=== PATIENT | female | born 1965 | race Caucasian/White ===

== ENCOUNTER 2020-06-12 12:13 | Outpatient (REF) | payer MEDICAID, SELFPAY ==
[2020-06-12 19:41] LABS: HCT 44.6 % (36.0-46.0); HGB 14.5 g/dL (11.2-15.7); MCH 29.6 pg (27.0-33.0); MCHC 32.5 % (32.0-36.0); MPV 11.1 fL (8.0-11.0); Platelet Count 230 10^3/uL (130-400); RDW 12.4 % (11.7-14.6); RDW-SD 41.4 fL; WBC 11.11 10^3/uL (4.4-10.8)
[2020-06-12 20:04] LABS: BUN 14 mg/dL (7-18); CREATININE 0.87 mg/dL (0.55-1.02); Calcium 8.6 mg/dL (8.5-10.1); Calculated LDL 123 mg/dL (<100); Chloride 103 mmol/L (98-107); Cholesterol 207 mg/dL (<200); Glucose 110 mg/dL (74-106); HDL Cholesterol 49 mg/dL (40-60); Potassium 4.1 mmol/L (3.5-5.1); Sodium 136 mmol/L (136-145); TSH (W/Ref FT4) 2.03 uIU/mL (0.36-3.74); Triglyceride 177 mg/dL (<150)
== END 2020-06-12 12:33 ==
LOC: NCHCN 12:13
PROVIDERS: Visit Provider Nurse Practitioner Family
DX: I10 Essential (primary) hypertension (principal); E11.9 Type 2 diabetes mellitus without complications; Z00.00 Encounter for general adult medical examination without abnormal findings
CPT/HCPCS: 80048; 80061; 85027; 84443

== ENCOUNTER 2020-07-07 13:31 | Outpatient (REF) | payer MEDICAID, SELFPAY ==
[2020-07-09 17:33] LABS: SARS-CoV-2 RNA Undetected (Undetected); SARS-CoV-2 Specimen Source Nasal
== END 2020-07-07 13:51 ==
LOC: NCHCN 13:31
PROVIDERS: Visit Provider Nurse Practitioner Family
DX: J06.9 Acute upper respiratory infection, unspecified (principal)
CPT/HCPCS: U0003

== ENCOUNTER 2020-09-11 01:34 | Outpatient (CLI) | payer MEDICAID, SELFPAY ==
[2020-09-12 11:30] LABS: COVID-19 RT-PCR UVMMC Result Negative (Negative)
== END 2020-09-11 01:35 | disposition home or self-care (01) ==
LOC: LBO 01:36
PROVIDERS: Visit Provider Family Medicine
DX: Z20.822 Contact with and (suspected) exposure to COVID-19 (principal)
CPT/HCPCS: U0003

== ENCOUNTER 2020-09-14 03:39 | Outpatient (CLI) | payer MEDICAID, SELFPAY ==
[2020-09-14] MEDS: Inhaler, Assist Device 1 EACH MC (11:30)
[2020-09-14] MEDS: Albuterol HFA 18 GM 200 PUFF INH IH (11:30)
--- NOTE | 2020-09-16 14:53 | W.PFT ---
Date of service: 09/14/20 Time of Service: 10:19 Pulmonary Function Test Result Interpretation Spirometry: No evidence of obstructive airways disease, no bronchodilator response Lung Volumes: Mild restriction Diffusion Capacity: Normal Airway Pressure: Normal Impression Mild restrictive pattern, clinical correlation recommended Clinical Correlation therefore is recommended.
== END 2020-09-14 03:40 | disposition home or self-care (01) ==
LOC: RT 03:39
PROVIDERS: Visit Provider Nurse Practitioner Family
DX: R06.09 Other forms of dyspnea (principal); Z82.5 Family history of asthma and other chronic lower respiratory diseases
CPT/HCPCS: 94060; 94726; 94729

== ENCOUNTER 2020-09-23 02:05 | Outpatient (CLI) | payer MEDICAID, SELFPAY ==
--- NOTE | 2020-09-23 14:58 | DI.MAMMO_ITS ---
EXAM: MG MAMMO SCREENING CLINICAL HISTORY: SCREENING, Z12.39. TECHNIQUE: Bilateral full field digital CC and MLO mammographic images were obtained with 3D tomosyn thesis and utilizing computer aided detection (CAD). COMPARISON: None. Prior mammograms in [place]. Addendum will follow if these are received. FINDINGS: The fibroglandular tissue pattern is predominantly fatty. There are no significant focal findings in the right breast. In the left breast on 3D imaging there is a benign appearing noncalcified well-defined 2 millimeter nodule located 10 cm in from the nipple. Approximately 6 o'clock position. Benign-appearing microcalcifications are noted in both breast. No malignant-appearing microcalcification groups. There is no significant architectural distortion n or skin thickening-retraction. IMPRESSION: No radiographic evidence of malignancy in the right breast. Small benign-appearing noncalcified well-defined 2 millimeter left breast nodule as described above. The next step should be to acquire the prior images-mammograms from [place] for comparison purposes. Attempt will be made to obtain these prior mammograms. If you have not received an addendum report with comparison in 2 weeks time then please contact our radiology department at . BI-RADS Category 0 - Assessment Incomplete: Need additional imaging evaluation Breast Density - Category A - Almost entirely fatty Breast density Category C or D implies that the patient has dense breast tissue. Dense breast tissue can make it harder to find cancer on a mammogram. Dense breast tissue is also associated with an incr eased risk of breast cancer. This information about the result of the mammogram report was provided to the patient to raise their awareness. Use this report when you speak with the patient about their risks for breast cancer, which includes their family history. At that time, you may recommend additional screening tests (Ultrasoun d or MRI) as these tests may add significant information. A negative radiographic report should not delay biopsy if a dominant or clinically suspicious mass is present. Up to ten percent of cancers are not identified on mammography. A negative report may reinforce clinical impression. Adenosis and dense breasts may obscure an underlying neoplasm. False positive reports average 6 to 10%. Patient will receive a letter notifying them of these results.
== END 2020-09-23 02:06 ==
LOC: DI 02:05
PROVIDERS: Visit Provider Nurse Practitioner Family
DX: Z12.31 Encounter for screening mammogram for malignant neoplasm of breast (principal); R92.8 Other abnormal and inconclusive findings on diagnostic imaging of breast
CPT/HCPCS: 77063; 77067

== ENCOUNTER 2020-10-09 11:17 | Outpatient (CLI) | payer MEDICAID, SELFPAY ==
--- NOTE | 2020-10-09 10:12 | DI.RAD_ITS ---
EXAM: XR KNEE RT 3V AP,LAT,STEVEN CLINICAL HISTORY: RT KNEE PAIN, M25.561. TECHNIQUE: 2D digital imaging was performed. COMPARISON: No exams were available for comparison FINDINGS: BONES: No acute fracture is present. No bony destructive lesion is seen. There are enthesophytes site s at the superior and inferior patella and anterior tibia. JOINTS: The knee is normally aligned. No joint effusion is seen. The joint spaces are well maintained . SOFT TISSUE: Normal. IMPRESSION: No acute abnormality. DATA REPOSITORY: RADIATION DOSE DELIVERED:
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
== END 2020-10-09 11:37 ==
PROVIDERS: PCP Nurse Practitioner Family; Visit Provider Nurse Practitioner Family
DX: M25.561 Pain in right knee (principal)
CPT/HCPCS: 73562

== ENCOUNTER 2020-10-15 01:52 | Outpatient (CLI) | payer MEDICAID, SELFPAY ==
--- NOTE | 2020-10-15 | DI.US_ITS ---
EXAM: MG MAMMO SCREEN CALL BACK UNI and U/S breast LT limited CLINICAL HISTORY: F/U MAMMO, LT BREAST NODULE. TECHNIQUE: Craniocaudal and mediolateral oblique Full Field Digital Mammography views of the left br east with Computer Aided Diagnosis followed by Tomosynthesis and left breast ultrasound. COMPARISON: Prior examinations for comparison. FINDINGS: Mammography/Tomosynthesis: Masses/Architectural Distortion: None seen. The nodular density previously noted is not well visualiz ed on the additional views. Unremarkable vessels are seen in the central breast. Microcalcifictions: No suspicious pleomorphic-type are seen. Skin Thickening/Nipple Retraction: None. Left breast US: Echotexture: Normal appearance of the glandular tissue. Shadowing: No suspicious foci. Cyst: None. Solid lesions: None seen. Ductal dilation: None. IMPRESSION: 1. No evidence of malignancy is noted. 2. Six-month follow-up left mammogram is recommended for re-evaluation. 3. The findings were discussed with the patient on the date of the examination. BI-RADS Category 3 - 6 month - Probably Benign Finding: Recommend follow-up mammography in 6 months Breast Density - Category A - Almost entirely fatty Breast density Category C or D implies that the patient has dense breast tissue. Dense breast tissue can make it harder to find cancer on a mammogram. Dense breast tissue is also associated with an incr eased risk of breast cancer. This information about the result of the mammogram report was provided to the patient to raise their awareness. Use this report when you speak with the patient about their risks for breast cancer, which includes their family history. At that time, you may recommend additional screening tests (Ultrasoun d or MRI) as these tests may add significant information. A negative radiographic report should not delay biopsy if a dominant or clinically suspicious mass is present. Up to ten percent of cancers are not identified on mammography. A negative report may reinforce clinical impression. Adenosis and dense breasts may obscure an underlying neoplasm. False positive reports average 6 to 10%. Patient will receive a letter notifying them of these results.
== END 2020-10-15 02:12 ==
PROVIDERS: Visit Provider Nurse Practitioner Family
DX: R92.8 Other abnormal and inconclusive findings on diagnostic imaging of breast (principal)
CPT/HCPCS: 76642; 77063; 77067

== ENCOUNTER 2020-12-30 03:05 | Outpatient (CLI) | payer MEDICAID, SELFPAY ==
[2020-12-30 11:39] LABS: Source Nasal/Nares
[2020-12-30 16:05] LABS: COVID-19 PCR Negative (Negative)
== END 2020-12-30 03:06 | disposition home or self-care (01) ==
PROVIDERS: Visit Provider Nurse Practitioner
DX: Z20.822 Contact with and (suspected) exposure to COVID-19 (principal); Z01.818 Encounter for other preprocedural examination
CPT/HCPCS: 87635

== ENCOUNTER 2021-04-20 02:12 | Outpatient (CLI) | payer MEDICAID, SELFPAY ==
--- NOTE | 2021-04-20 08:55 | DI.MAMMO_ITS ---
Exam(s) MG MAMMO DIAGNOSTIC UNI EXAM: MG MAMMO DIAGNOSTIC UNI CLINICAL HISTORY: [id number] 6 MO F/U, F/U ABNL MAMMO,R92.8. TECHNIQUE: Craniocaudal and mediolateral oblique Full Field Digital Mammography views of the left b reast with Computer Aided Diagnosis followed by Tomosynthesis. COMPARISON: MG MG MAMMO SCREENING from 09/23/2020 MG MG MAMMO SCREENING from 09/23/2020 US US BREAST LT LIMITED from 10/15/2020 US US BREAST LT LIMITED from 10/15/2020 MG MG MAMMO SCREEN CALL BACK UNI from 10/15/2020 MG MG MAMMO SCREEN CALL BACK UNI from 10/15/2020 FINDINGS: Mammography/Tomosynthesis: Masses/Architectural Distortion: None seen. Microcalcifictions: No suspicious pleomorphic-type are seen. Skin Thickening/Nipple Retraction: None. IMPRESSION: 1. No evidence of malignancy is noted. 2. Unless there is more urgent need, follow-up screening mammography is recommended, as per [employer] guidelines. 3. The findings were discussed with the patient on the date of the examination. BI-RADS Category 1 - Negative Breast Density - Category A - Almost entirely fatty A negative radiographic report should not delay biopsy if a dominant or clinically suspicious mass is present. Up to ten percent of cancers are not identified on mammography. A negative report may reinforce clinical impression. Adenosis and dense breasts may obscure an underlying neoplasm. False positive reports average 6 to 10%. Patient will receive a letter notifying them of these results.
== END 2021-04-20 02:32 ==
PROVIDERS: PCP Nurse Practitioner Family; Visit Provider Nurse Practitioner Family
DX: R92.8 Other abnormal and inconclusive findings on diagnostic imaging of breast (principal)
CPT/HCPCS: 77061; 77065; G0279

== ENCOUNTER 2021-09-14 21:05 | Outpatient (REF) | payer MEDICAID, SELFPAY ==
[2021-09-14 21:35] LABS: ESR 9 mm/hr (0-30)
[2021-09-14 21:37] LABS: Abs Immature Grans 0.04 10^3/uL (0.0-0.06); Absolute Basophil Count 0.06 10^3/uL (0.0-0.2); Absolute Eosinophil Count 0.11 10^3/uL (0.0-0.7); Absolute Lymphocyte Count 3.76 10^3/uL (1.2-3.4); Absolute Monocyte Count 0.71 10^3/uL (0.1-0.8); Basophils % 0.5; Eosinophils % 0.9; HCT 46.9 % (36.0-46.0); HGB 14.9 g/dL (11.2-15.7); Immature Grans % 0.3; Lymphocytes % 32.2; MCH 28.9 pg (27.0-33.0); MCHC 31.8 % (32.0-36.0); MCV 90.9 fL (80-95); MPV 11.6 fL (8.0-11.0); Monocytes % 6.1; Nucleated RBC 0 %; Platelet Count 262 10^3/uL (130-400); RBC 5.16 10^6/uL (3.93-5.22); RDW 12.5 % (11.7-14.6); RDW-SD 41.4 fL; WBC 11.68 10^3/uL (4.4-10.8)
[2021-09-14 21:40] LABS: Absolute Neutrophil Count 7.01 10^3/uL (1.2-6.7)
[2021-09-14 21:50] LABS: ALT 66 U/L (14-59); AST 32 U/L (15-37); Albumin 4.4 g/dL (3.4-5.0); Alkaline Phosphatase 108 U/L (46-116); BUN 16 mg/dL (7-18); Bilirubin, Total 0.7 mg/dL (0.2-1.0); C-Reactive Protein 0.47 mg/dL (0.0-0.3); CREATININE 0.8 mg/dL (0.55-1.02); Calcium 9.4 mg/dL (8.5-10.1); Chloride 101 mmol/L (98-107); Creatine Kinase 91 U/L (26-192); Glucose 107 mg/dL (74-106); Potassium 3.8 mmol/L (3.5-5.1); Sodium 140 mmol/L (136-145); Total Protein 8.2 g/dL (6.4-8.2)
[2021-09-14 21:55] LABS: Bilirubin Negative (Negative); Blood Negative (Negative); Clarity Cloudy (Clear); Glucose Negative (Negative); Ketones Negative (Negative); Leukocyte Esterase Negative (Negative); Nitrite Negative (Negative); Specific Gravity 1.025 (1.005-1.025); Urobilinogen 0.2 EU/dL (Up TO 0.2); pH 5.5 (5-8)
[2021-09-14 23:07] LABS: C Diff PCR Negative (Negative)
[2021-09-16 10:24] LABS: Lyme Ab w Rflx to Lyme Confirm Positive (Negative)
[2021-09-16 10:48] LABS: Campylobacter PCR Negative (Negative); Salmonella PCR Negative (Negative); Shiga Toxin PCR Negative (Negative); Shigella/Enteroinvasive Ecoli Negative (Negative)
[2021-09-16 11:28] LABS: IgA 152 mg/dL (85-499); Interpretation (See Note); Tissue Transglutaminase IgA <1.2 U/mL (<4.0)
[2021-09-16 11:41] LABS: Lyme IgG Ab Negative (Negative); Lyme IgM Ab Positive (Negative)
[2021-09-16 14:47] LABS: ANA Interpretation Negative (Negative)
[2021-09-19 01:01] LABS: Anaplasma phagocytophilum Negative (Negative); B. miyamotoi PCR Negative (Negative); Babesia divergens/MO-1 Negative (Negative); Babesia duncani Negative (Negative); Babesia microti Negative (Negative); Ehrlichia chaffeensis Negative (Negative); Ehrlichia ewingii/canis Negative (Negative); Ehrlichia muris eauclairensis Negative (Negative)
== END 2021-09-14 21:06 | disposition home or self-care (01) ==
LOC: LBN 21:05
PROVIDERS: PCP Nurse Practitioner Family; Visit Provider Nurse Practitioner Family
DX: M25.59 Pain in other specified joint (principal); R27.9 Unspecified lack of coordination; I10 Essential (primary) hypertension; E11.9 Type 2 diabetes mellitus without complications; K92.9 Disease of digestive system, unspecified
CPT/HCPCS: 80053; 82550; 82784; 83516; 85652; 86617; 87329; 87493; 87505; 87798; 81003; 83036; 83630; 85025; 86038; 86140; 86618; 87086

== ENCOUNTER 2021-09-28 17:34 | Outpatient (REF) | payer MEDICAID, SELFPAY ==
[2021-09-28 21:10] LABS: ALT 63 U/L (14-59); AST 23 U/L (15-37); Albumin 3.7 g/dL (3.4-5.0); Alkaline Phosphatase 98 U/L (46-116); Bilirubin, Total 0.3 mg/dL (0.2-1.0)
[2021-09-28 21:20] LABS: Bilirubin, Direct 0.1 mg/dL (0.0-0.2)
[2021-09-30 10:52] LABS: Hepatitis A Antibody IgM Negative (Negative); Hepatitis B Core Antibody Negative (Negative); Hepatitis B surface Ag Negative (Negative); Hepatitis C Ab w Rflx HCV PCR Negative (Negative)
[2021-09-30 12:33] LABS: Lyme Ab w Rflx to Lyme Confirm Equivocal (Negative)
[2021-10-04 10:44] LABS: Lyme IgG Ab Negative (Negative); Lyme IgM Ab Negative (Negative)
== END 2021-09-28 17:35 | disposition home or self-care (01) ==
LOC: LBN 17:34
PROVIDERS: PCP Nurse Practitioner Family; Visit Provider Nurse Practitioner Family
DX: M25.59 Pain in other specified joint (principal); R94.5 Abnormal results of liver function studies; R79.89 Other specified abnormal findings of blood chemistry
CPT/HCPCS: 80076; 86617; 86704; 86709; 86803; 87340; 86618

== ENCOUNTER 2021-10-13 06:02 | Inpatient (IN) | payer MEDICAID, SELFPAY ==
[2021-10-13] VITALS (102 sets, daily range): BP systolic 115–169; BP diastolic 54–92; PULSE 60–98; RESP 12–28; TEMP 36.3–37.3; O2SAT 91–100
--- NOTE | 2021-10-13 06:15 | DI.RAD_ITS ---
Exam(s) XR SOFT TISSUE NECK EXAM: XR SOFT TISSUE NECK CLINICAL HISTORY: ?foreign body TECHNIQUE: COMPARISON: No exams were available for comparison FINDINGS: Two views were obtained. The tracheo laryngeal cyst soft tissue shadows are unremarkable. No gross foreign body by plain film criteria. IMPRESSION: RADIATION DOSE DELIVERED: Total DLP
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
[2021-10-13 06:24] LABS: Source Nasal/Nares
[2021-10-13] MEDS: Lidocaine 2% Viscous 15 ML CUP PO (06:56)
--- NOTE | 2021-10-13 06:58 | DI.VRAD_ITS ---
PROCEDURE INFORMATION: Exam: XR Soft Tissue Neck Exam date and time: 10/13/2021 6:19 AM Age: 56 years old Clinical indication: Other: ? Foreign body TECHNIQUE: Imaging protocol: XR of the soft tissues of the neck. COMPARISON: DX CSPINE 08/29/2018 9:09 AM FINDINGS: Airway: Normal. No abnormal narrowing. Soft tissues: Normal. Normal epiglottis. Bones/joints: Unremarkable. IMPRESSION: No acute findings. No radiopaque foreign body. Dictated and Authenticated by: Benjie Love MD. Ordering:PRINCESS Frank MD
[2021-10-13 07:01] LABS: COVID-19 PCR Negative (Negative)
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
[2021-10-13] MEDS: Dexamethasone 10 MG/ML VIAL IVP (08:02)
[2021-10-13 09:05] LABS: Abs Immature Grans 0.03 10^3/uL (0.0-0.06); Absolute Basophil Count 0.04 10^3/uL (0.0-0.2); Absolute Eosinophil Count 0.09 10^3/uL (0.0-0.7); Absolute Lymphocyte Count 2.43 10^3/uL (1.2-3.4); Absolute Monocyte Count 0.55 10^3/uL (0.1-0.8); Absolute Neutrophil Count 6.24 10^3/uL (1.2-6.7); Basophils % 0.4; HCT 39.5 % (36.0-46.0); HGB 13.4 g/dL (11.2-15.7); Immature Grans % 0.3; Lymphocytes % 25.9; MCH 30.1 pg (27.0-33.0); MCHC 33.9 % (32.0-36.0); MCV 88.8 fL (80-95); MPV 10.4 fL (8.0-11.0); Monocytes % 5.9; Neutrophils % 66.5; Nucleated RBC 0 %; Platelet Count 212 10^3/uL (130-400); RBC 4.45 10^6/uL (3.93-5.22); RDW 12.9 % (11.7-14.6); RDW-SD 42.1 fL; WBC 9.38 10^3/uL (4.4-10.8)
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
[2021-10-13] MEDS: Famotidine 20 MG/2 ML VIAL IVP ×2 (09:09→20:27)
[2021-10-13] MEDS: Pantoprazole 40 MG VIAL IVP (09:09)
[2021-10-13 09:13] LABS: Magnesium 2.3 mg/dL (1.8-2.4)
[2021-10-13 09:19] LABS: ALT 75 U/L (14-59); AST 37 U/L (15-37); Albumin 3.5 g/dL (3.4-5.0); Alkaline Phosphatase 100 U/L (46-116); Anion Gap 7.6 mmol/L (3-11); BUN 12 mg/dL (7-18); Bilirubin, Total 0.5 mg/dL (0.2-1.0); CO2 27.4 mmol/L (21.0-32.0); CREATININE 0.7 mg/dL (0.55-1.02); Calcium 8.4 mg/dL (8.5-10.1); Chloride 104 mmol/L (98-107); Glucose 176 mg/dL (74-106); Potassium 4.5 mmol/L (3.5-5.1); Sodium 139 mmol/L (136-145); Total Protein 7.3 g/dL (6.4-8.2)
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
--- NOTE | 2021-10-13 11:12 | NUR.NOTE ---
Rachel Mendoza from speech to be here around 1600 to see patient. Nursing Note:
--- NOTE | 2021-10-13 11:25 | PDOC.STREC ---
Date of service: 10/13/21 Time of Service: 11:25 Speech Therapy Recommendations Report ST Recommendations: SURVEY COORDINATOR Communication / Non-Treatment Note Consult order received; chart reviewed. SURVEY COORDINATOR received phone call from ICU, spoke with RN re: current patient status, reason for consult ie angioedema/uvular edema, with resulting dysphagia/dysphonia (dysphonia seems to have resolved). Patient also seen by Dr Dow / ENT this AM, who performed nasopharyngoscopy, and noted angioedema of her uvula, likely caused by a combination of her OSMIN inhibitor, untreated sleep apnea, and resultant traction injury to her uvula. No current airway compromise; patient is currently being monitored in the ICU.? Per RN, patient is currently NPO, awaiting effects of steroids provided to address swelling. Plan: SURVEY COORDINATOR to return between 4-4:30pm this afternoon for full assessment/screening as appropriate, provide updated recommendations at this time. Rachel Mendoza MA [facility] COORDINATOR Speech-Language Pathologist [place]#[phone] Coding
[2021-10-13] MEDS: LORazepam 2 MG/ML VIAL 0.5 MG IVP (12:07)
[2021-10-13] MEDS: Normal Saline Flush 10 ML SYR IVP ×3 (12:09→20:28)
[2021-10-13] MEDS: Dexamethasone 4 MG/ML VIAL 6 MG IVP ×2 (14:18→20:28)
[2021-10-13] MEDS: Enoxaparin 40 MG/0.4 ML SYR SC (14:18)
--- NOTE | 2021-10-13 15:38 | NUR.NOTE ---
Patient asked me to give MD her brothers phone number. Text paged doctor and written on communication white board in ICU Phone number is [phone] name is Syed Nursing Note:
[2021-10-13] MEDS: Normal Saline 1,000 ML 150 ML IV ×2 (15:42→22:12)
[2021-10-13] MEDS: ACETAMINOPHEN 1,000 MG/100 ML BTL 400 MG IVPB ×2 (15:42→23:50)
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
[2021-10-13] MEDS: Insulin Aspart 300 UNITS/3 ML PEN SC ×2 (17:38→23:36)
[2021-10-13] MEDS: Latanoprost 0.005% 2.5 ML BTL OU (21:22)
[2021-10-14] VITALS (106 sets, daily range): BP systolic 128–154; BP diastolic 66–95; PULSE 73–97; RESP 10–42; TEMP 36.5–37.1; O2SAT 92–97
[2021-10-14] MEDS: Dexamethasone 4 MG/ML VIAL 6 MG IVP ×2 (02:04→07:58)
--- NOTE | 2021-10-14 03:22 | NUR.NOTE ---
0000-pt's BP cuff recall time changed to q 2 hr per pts request so she can sleep. Bp stable presentlly with bp 130/69.
[2021-10-14] MEDS: Normal Saline 1,000 ML 150 ML IV (04:50)
[2021-10-14] MEDS: Insulin Aspart 300 UNITS/3 ML PEN SC ×2 (06:01→09:11)
[2021-10-14 06:40] LABS: Abs Immature Grans 0.18 10^3/uL (0.0-0.06); Absolute Monocyte Count 0.31 10^3/uL (0.1-0.8); Absolute Neutrophil Count 18.34 10^3/uL (1.2-6.7); Basophils % 0.1; HCT 40.1 % (36.0-46.0); HGB 13.2 g/dL (11.2-15.7); Immature Grans % 0.9; MCH 29.2 pg (27.0-33.0); MCHC 32.9 % (32.0-36.0); MCV 88.7 fL (80-95); MPV 10.9 fL (8.0-11.0); Monocytes % 1.5; Neutrophils % 87.5; Nucleated RBC 0 %; Platelet Count 254 10^3/uL (130-400); RBC 4.52 10^6/uL (3.93-5.22); RDW-SD 42.2 fL; WBC 20.96 10^3/uL (4.4-10.8)
[2021-10-14 06:41] LABS: Absolute Basophil Count 0.02 10^3/uL (0.0-0.2)
[2021-10-14 06:56] LABS: BUN 11 mg/dL (7-18); CREATININE 0.9 mg/dL (0.55-1.02); Calcium 8.6 mg/dL (8.5-10.1); Chloride 103 mmol/L (98-107); Glucose 262 mg/dL (74-106); Potassium 3.7 mmol/L (3.5-5.1); Sodium 137 mmol/L (136-145)
[2021-10-14] MEDS: Pantoprazole 40 MG VIAL IVP (07:57)
[2021-10-14] MEDS: Normal Saline Flush 10 ML SYR IVP ×2 (07:57→09:23)
[2021-10-14] MEDS: Famotidine 20 MG/2 ML VIAL IVP (07:58)
--- NOTE | 2021-10-14 08:56 | W.INDIABCONS ---
Date of service: 10/14/21 Time of Service: 08:57 Diabetes Inpatient Consult Reason for Visit: dm DESCRIPTION/ASSESSMENT: 56 year female admitted with dysphagia secondary to ulvular edema. PMH: class 2 obesity, HTN, NIDDM. Home DM meds: 1000 mg metformin BID. Most recent A1C (09/14/21): 7% indicates excellent glycemic management. Following diabetic diet/minced and moist and meeting 100% nutrient and fluid needs. No at nutritional risk. PLAN: Continue current meal plan, will monitor po intake, labs, weight Time Spent in Nutritional Counseling and Treatment: 10
[2021-10-14] MEDS: metFORMIN 500 MG TAB 1000 MG PO (09:09)
[2021-10-14] MEDS: Atorvastatin 20 MG TAB PO (09:09)
[2021-10-14] MEDS: Citalopram 20 MG TAB 40 MG PO (09:09)
[2021-10-14] MEDS: Lidocaine 5% Patch 1 PATCH TP (09:09)
[2021-10-14] MEDS: Gabapentin 100 MG CAP PO (09:09)
[2021-10-14] MEDS: MELOXICAM 7.5 MG TAB PO (09:39)
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
--- NOTE | 2021-10-14 10:03 | STREC_ITS ---
Date of service: 10/14/21 Time of Service: 10:05 Speech Therapy Recommendations Report ST Recommendations: ACCOUNTING LECTURER Communication / Non-Treatment Note ACCOUNTING LECTURER spoke with patient's RN, as well as Dr. Martinez this AM re: current patient status, plan of care. Per RN, patient is tolerating po intake without issue / negative for overt s.sx aspiration at this time. Plan: Patient is recommended to follow up with ACCOUNTING LECTURER Dept on outpatient basis to address dysphagia history and ongoing management as appropriate. Will cc Dr Irma Pickens, patient's PCP, to request VFSE/MBSS (modified barium swallow study) on outpatient basis. No further acute ACCOUNTING LECTURER services warranted; patient discharged from acute ACCOUNTING LECTURER services at this time. Please re-consult PRN. Current Recommendations: Patient is appropriate for solid texture diet upgrade as tolerated/per preference with outlined safe swallow precautions, which patient is able to de monstrate independently without cueing required at this time. Rachel Mendoza MA [facility]-ACCOUNTING LECTURER Speech-Language Pathologist [place]#[phone] Coding
--- NOTE | 2021-10-14 10:03 | PDOC.STREC ---
Date of service: 10/14/21 Time of Service: 10:05 Speech Therapy Recommendations Report ST Recommendations: DOVETAIL MACHINE OPERATOR Communication / Non-Treatment Note DOVETAIL MACHINE OPERATOR spoke with patient's RN, as well as Dr. Martinez this AM re: current patient status, plan of care. Per RN, patient is tolerating po intake without issue / negative for overt s.sx aspiration at this time. Plan: Patient is recommended to follow up with DOVETAIL MACHINE OPERATOR Dept on outpatient basis to address dysphagia history and ongoing management as appropriate. Will cc Dr Irma Pickens, patient's PCP, to request VFSE/MBSS (modified barium swallow study) on outpatient basis. No further acute DOVETAIL MACHINE OPERATOR services warranted; patient discharged from acute DOVETAIL MACHINE OPERATOR services at this time. Please re-consult PRN. Current Recommendations: Patient is appropriate for solid texture diet upgrade as tolerated/per preference with outlined safe swallow precautions, which patient is able to demonstrate independently without cueing required at this time. Rachel Mendoza MA [facility]-DOVETAIL MACHINE OPERATOR Speech-Language Pathologist [place]#[phone] Coding
[2021-10-14] MEDS: Enoxaparin 40 MG/0.4 ML SYR SC (12:18)
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
--- NOTE | 2021-10-14 16:47 | PDOC.CMDIS ---
- If Service Date Differs Date of service: 10/14/21 Time of Service: 16:47 LACE Index Scoring Tool - Questions: Length of Stay (in days): 1 Acuity (Admit via E.D.?): Yes Comorbidities: Diabetes w/o Complication E.D. Visits: 1 - Answers: Total Score: 6 Risk of Readmission: Low Risk Care Management Discharge Reason for Hospitalization: Angioedema Discharge Plan: Joanna will return home with no new services. Her daughter will drive her home via private vehicle. She will follow up with her PCP and discharge plan of care. She is happy to be going home. Patient/Family Education Needs: Review discharge instructions regarding activity levels and medications, discussion of self care needs including ask me three.
[2021-10-15 12:59] LABS: Lyme Ab w Rflx to Lyme Confirm Equivocal (Negative)
[2021-10-15 17:23] LABS: Lyme IgG Ab Negative (Negative); Lyme IgM Ab Positive (Negative)
[2021-10-16 01:12] LABS: Anaplasma phagocytophilum Negative (Negative); B. miyamotoi PCR Negative (Negative); Babesia divergens/MO-1 Negative (Negative); Babesia duncani Negative (Negative); Babesia microti Negative (Negative); Ehrlichia chaffeensis Negative (Negative); Ehrlichia ewingii/canis Negative (Negative); Ehrlichia muris eauclairensis Negative (Negative)
== END 2021-10-14 14:15 | disposition home or self-care (01) | DRG 916 ==
LOC: ER 09:38 → ICU 10:01
PROVIDERS: Emergency Medicine; Admitting Provider Internal Medicine; Emergency Provider Student in an Organized Health Care Education/Training Program; PCP Nurse Practitioner Family; Visit Provider Internal Medicine
DX: T78.3XXA Angioneurotic edema, initial encounter (principal); T46.4X5A Adverse effect of angiotensin-converting-enzyme inhibitors, initial encounter; G47.33 Obstructive sleep apnea (adult) (pediatric); E78.5 Hyperlipidemia, unspecified; I10 Essential (primary) hypertension; M54.16 Radiculopathy, lumbar region; G47.61 Periodic limb movement disorder; G89.29 Other chronic pain; F41.8 Other specified anxiety disorders; M54.2 Cervicalgia; Z79.84 Long term (current) use of oral hypoglycemic drugs; E11.40 Type 2 diabetes mellitus with diabetic neuropathy, unspecified
CPT/HCPCS: 31575; 36416; 80048; 80053; 82805; 82962; 86617; 86900; 86901; 87635; 87798; 92610; 96374; 96375; 99285; J1650; 70360; 83735; 85025; 86618; 87081; 99239; 99291; J0131; J1100; J2060; P9059

== ENCOUNTER 2021-10-25 02:55 | Outpatient (CLI) | payer MEDICAID, SELFPAY ==
[2021-10-25 11:29] LABS: Source Nasal/Nares
[2021-10-25 16:14] LABS: COVID-19 PCR Negative (Negative)
== END 2021-10-25 02:56 | disposition home or self-care (01) ==
LOC: LBO 02:55
PROVIDERS: PCP Nurse Practitioner Family; Visit Provider Surgery
DX: Z20.822 Contact with and (suspected) exposure to COVID-19 (principal); Z01.818 Encounter for other preprocedural examination
CPT/HCPCS: 87635

== ENCOUNTER 2021-10-27 06:40 | Day surgery (SDC) | payer MEDICAID, SELFPAY ==
--- NOTE | 2021-10-26 08:44 | NUR.NOTE ---
Addendum entered by Sahhid Clinton 10/26/21 13:04: correctional food service supervisor aware with arrival time. Addendum entered by Shahid Clinton 10/26/21 13:02: 3rd attempt no answer. Office aware, and send additional text message to patient. Original Note: x2 attempts with voicemail unable to reach patient. VM left with arrival time of 0615 and NPO instructions. office notified.Nursing Note:
--- NOTE | 2021-10-27 06:24 | COLE_ITS ---
Colonoscopy Report Date of procedure: 10/27/21 Pre-op diagnosis general: GERD, Diarrhea Post-op diagnosis procedure note: other (mild gastritis and esophagitis, descending colon polyp) Procedure: 1. EGD with biopsies 2. Colonoscopy with biopsies and polypectomy Surgeon: Martha Bhakta Anesthesia Type: General:No Airway Estimated blood loss (mL): 5 Pathology: other (gastric bx, Ge junction bx, randome colon bx, descending polyp) Complications: None Disposition: same day Indications: Mrs Ball is a pleasant 56-year-old female who comes in today to discuss a colonoscopy.? She has never had a colonoscopy before.? She has a history of chronic diarrhea/constipation.? When she has diarrhea her stools are watery and she may have 4-5 a day.? She will then go a couple of days without bowel movements and then have a hard stool.? This has been going on for as long as she can remember.? She has a lot of gas.? Sometimes that she has some bright red blood per rectum which is mostly on the tissue paper.? She has not lost any weight.? She does have a fatty liver and sometimes feels like her abdomen is bloated.? She also has a history of GERD for which she takes Pepcid 20 mg twice a day as well as omeprazole.? She continues to have GERD symptoms despite both of these medications.? She has never had an upper endoscopy.? Her symptoms are worse at night.? I recommend that she undergo a colonoscopy and an upper endoscopy at this point.? The procedures were explained in detail in layman's terms.? We reviewed risks, benefits and complications. Risks, benefits and complications have been reviewed. Complications include but are not limited to bleeding, pain, perforation, missed small lesion/polyp, sore throat, aspiration and adverse reaction to the medications. Questions were entertained and answered to their satisfaction and they wished to proceed. No guarantees were given or implied. Proceed with colonoscopy and EGD under sedation Prep: Miralax/Dulcolax Procedure Start Time: 07:30 Procedure End Time: 07:54 Retraction Time: 10 minutes Findings: mild inflammation of the stomach and GE junction Descending colon polyp Procedure Description: After informed consent was obtained the patient was take to the procedure room and placed in a supine position. Monitors were applied and a time out was done. The patients name, date of , procedure type, allergies to medications and metal in their body was reviewed. A bite block was placed and the patient was sedated. Once sedated and comfortable the gastroscope was advanced through the oropharynx which was grossly normal into the esophagus. The proximal and mid- esophagus were normal. In the distal esophagus there was mild inflammation noted. The scope was advanced into the stomach and through the pylorus into the 3rd portion of the duodenum. The duodenum was noted to be normal. The scope was retracted back into the stomach. There was mild inflammation noted in the antrum and body. Biopsies were done to rule out H. pylori. There were no ulcers. The scope was retro-flexed. The cardia and fundus were noted to be normal. There was no hiatal hernia noted. The scope was retracted back into the esophagus and biopsies were done of the GE junction to rule out Ceballos's. The Z line was regular. The GE junction was at 34 cm. While the patient was still sedated they were placed in a left decubitous position. A rectal exam was done. External exam was normal. Internal exam revealed a normal sphincter tone and no palpable masses. The scope was then introduced and retro-flexed. No internal hemorrhoids, masses or polyps were identified on retroflexion. The scope was then advanced to the cecum without difficulty. The ileocecal valve and appendiceal orifice were identified. The prep was good. The scope was then slowly retracted over 10 minutes back into the rectum. Polyps were removed with cold forceps in the descending colon. Randome bx to rule out microscopic colitis were done throughout the colon and rectum. There was no diverticulosis noted. The scope was removed and the patient was woken up and taken back to Same day surgery in stable condition. The patient tolerated the procedure well and there were no immediate complications. Follow up: will depend on pathology results. A letter will be send once I have the results.
--- NOTE | 2021-10-27 06:25 | W.PM.DSUDISC ---
Discharge Plan Disposition Patient Disposition: HOME Condition: Good Discharge Details Reason For Visit: colonoscopy Attending Provider: Martha Bhakta Primary Care Provider: Irma Pickens Home Meds and New Rx's Prescriptions: New omeprazole 40 mg capsule,delayed release(DR/EC) 40 mg PO BID Qty: 60 0RF Continued citalopram 40 mg tablet 40 mg PO DAILY 0RF atorvastatin 20 mg tablet 20 mg PO DAILY 0RF orphenadrine citrate 100 mg tablet extended release 100 mg PO BID 0RF latanoprost 0.005 % drops 1 drp ophthalmic (eye) DAILY 0RF albuterol sulfate 2.5 mg /3 mL (0.083 %) solution for nebulization 2.5 mg inhalation Q4H PRN0RF lidocaine 5 % adhesive patch,medicated 1 patch topical DAILY 0RF Rx Instructions: leave on most painful area for up to 12 hrs metformin 500 mg tablet 1,000 mg PO BID 0RF meloxicam 7.5 mg tablet 7.5 mg PO BID 0RF gabapentin 300 mg Capsule 300 mg PO QHS 0RF Discontinued omeprazole 40 mg capsule,delayed release(DR/EC) 40 mg PO DAILY 0RF famotidine 20 mg tablet 20 mg PO BID 0RF Discharge Instructions Instructions: Colorectal Polyps (DC), Diet for Stomach Ulcers and Gastritis (ED), Gastritis (DC) Additional Instructions: Findings: mild esophagitis mild gastritis one polyp Follow up: I will send a letter in the mail Please call if you develop: fevers >101.5 Nausea or Vomiting Abdominal pain that is not transient Rectal bleeding that is more then a tbsp A hard abdomen and inability to pass gas DAY SURGERY UNIT POST ENDOSCOPY INSTRUCTIONS Instructions for everyone who is given Anesthesia: For your safety, please do the following for the next 24 Hours: a. Do not drive or operate dangerous equipment b. Do not drink alcohol beverages or use any recreational drugs for the first 24 hours or while taking pain medications. The medications in your body may have a reaction that can be dangerous. c. Do not make any important decisions or sign any important papers 1. Generally there are no restrictions on your activity after a day or so has gone by, but you may feel a bit fatigued for a few days. 2. After you arrive home you may have a light meal and return to a normal diet as you can tolerate it without feeling sick to your stomach. 3. After surgery, you may feel pain or discomfort. This should be only transient, but if it persists please contact your doctor. 4. If there are any questions regarding the findings of your procedure, please feel free to contact your doctor. 6. If you are unable to contact your doctor with a problem, contact the hospital at [phone]. 7. Continue all your regular medications unless directed otherwise. I understand the above instructions and have no questions. Signature of Patient or Responsible Adult Escort Date/Time Name of Responsible Adult Escort Signature of Nurse Date/Time Activity:: Activity as Tolerated Diet:: low acid Discharge Orders Discharge Orders: Discharge Order (Routine); Ordered 10/27/21 Ordered By: Martha Bhakta
[2021-10-27 06:51] VITALS: BP 126/80; PULSE 76; RESP 16; TEMP 36.3; O2SAT 96
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
[2021-10-27 07:03] VITALS: BMI 39.6
[2021-10-27] MEDS: Lactated Ringers 1,000 ML 80 ML IV (07:05)
--- NOTE | 2021-10-27 07:30 | BOWEL_PTH ---
PATIENT: Joanna Ball LOC: [facility] U#:[id number] AGE/SX: 56/F ROOM: RE10/27/[address]: Martha Bhakta MD : [id number] BED: DIS: 10/27/2021 SPEC #: [id number] RECD: 10/27/21 12:23 STATUS: SUMAN RE #: [id number] MAGUE: 10/27/21 07:[address]: Martha Bhakta DEPT: Surgical Specimen RECD BY: Tiffany Metzger ENTERED: 10/27/21 12:26 SP TYPE: Bowel OTHR DR: Irma Pickens Tissues: 1 - STOMACH BIOPSY 2 - ESOPHAGUS BIOPSY 3 - BIOPSY BOWEL 4 - BIOPSY BOWEL 5 - BIOPSY BOWEL 6 - BIOPSY BOWEL 7 - BIOPSY BOWEL Procedures: SPECIAL STAIN 2 GROSS AND MICRO LEVEL 4 Comments: [id number]
[2021-10-27 08:03] VITALS: BP 122/79; PULSE 83; RESP 16; TEMP 36.4; O2SAT 96
--- NOTE | 2021-10-27 08:27 | W.ANESPOSTOP ---
Postoperative Evaluation Date, Time and Location Date Performed: 10/27/21 Time Performed: 08:27 Patient Location: Day [facility] Unit Vital Signs Most Recent Imported Vital Signs: Most Recent Vital Signs Temp Pulse Resp BP Pulse Ox 36.4 C L 83 16 122/79 96 10/27/21 08:03 10/27/21 08:03 10/27/21 08:03 10/27/21 08:03 10/27/21 08:03 Pain Score Most Recent Pain Score: Most Recent Pain Score Pain Level 8 10/27/21 08:03 Assessment Mental Status: Awake (Alert & Oriented to Patient Baseline) Airway and Respiratory Function: Patent airway with normal (patient baseline) respiratory exam Cardiovascular Function: Hemodynamically Stable Hydration Status: Adequately Hydrated Nausea & Vomiting: No Nausea or Vomiting Pain: Pt. Denies Any Pain Peripheral Nerve Block: Patient did not receive a nerve block
[2021-10-27 08:30] VITALS: BP 114/76; PULSE 62; RESP 16; TEMP 36.9; O2SAT 96
== END 2021-10-27 09:10 | disposition home or self-care (01) ==
PROVIDERS: PCP Nurse Practitioner Family; Visit Provider Surgery
PROC: (CPT 45380; principal; 2021-10-27 07:30)
DX: K21.9 Gastro-esophageal reflux disease without esophagitis (principal); R19.7 Diarrhea, unspecified; K63.5 Polyp of colon; K29.70 Gastritis, unspecified, without bleeding; K20.90 Esophagitis, unspecified without bleeding; K76.0 Fatty (change of) liver, not elsewhere classified; K22.89 Other specified disease of esophagus; K63.89 Other specified diseases of intestine
CPT/HCPCS: 45380; 43239; 88305; 88313

== ENCOUNTER 2022-04-16 04:51 | Emergency (ER) | payer MEDICAID, SELFPAY ==
[2022-04-16 04:55] VITALS: BP 136/110; PULSE 65; RESP 18; TEMP 36.8; O2SAT 98
--- NOTE | 2022-04-16 05:00 | DI.CT_ITS ---
Exam(s) CT BRAIN NECK CTA EXAM: CT BRAIN NECK CTA CLINICAL HISTORY: headache, post covid, fhx anyurism. TECHNIQUE: Imaging Protocol: Axial CT angiography was performed with multi-slice acquisition and mu lti-planar and/or 3D reconstructions. CONTRAST MATERIAL: Intravenous: Omnipaque 350 Contrast volume:85 mL COMPARISON: No exams were available for comparison FINDINGS: CTA Neck W: Aortic arch anatomy: The aortic arch anatomy is conventional. Anterior circulation: Both common carotid arteries ascend with normal luminal diameters. No significant stenosis evident a t the level the carotid bifurcation and proximal internal carotid arteries. The internal carotid art eries in the upper neck are patent without significant stenosis and these vessels are also demonstrat ed to be patent within the skull base-carotid canals. Posterior circulation: Both vertebral arteries originated conventional fashion off of the subclavian arteries and without si gnificant stenosis at their origins and there is no stenosis in subclavian arteries proximal to the v ertebral artery takeoff points. Both vertebral arteries ascend with normal equal luminal diameters i n the foramen transverse area and without evidence of intraluminal filling defects nor dissection. B oth vertebral arteries contribute to the formation of the basilar artery at the skull base. CTA Brain W: Anterior circulation: Both internal carotid arteries are patent in the skull base and cavernous sinuses. Supraclinoid aspe cts of these vessels are also patent. Left A1 segment is patent right A1 segment is thin, possibly d evelopmental. Anterior cerebral arteries are patent and there is no aneurysm at the level of the ant erior communicating artery. Middle cerebral arteries are patent. No stenosis nor aneurysms. No intraluminal filling defects. Posterior circulation: Basilar artery ascends in the midline. Distal it gives off superior cerebellar arteries and above th is level terminates as patent bilateral posterior cerebral arteries. On the right side the posterior cerebral artery also receives blood from a posterior communicating artery on the right side of the c [id number].. There does not appear to be a similar communicating artery in left side of the cir [id number]. There is no aneurysm of the tip of the basilar artery nor elsewhere in the [place]. CT BRAIN: There is no evidence of intracranial hemorrhage, mass effect, or shift of midline structures. There are no extra-axial fluid collections. Ventricles are not enlarged or shifted. There are no ring enh ancing lesions in the brain and no abnormal meningeal enhancement. IMPRESSION: 1. No significant stenosis in the carotid arteries in the neck. Both vertebral arteries are patent. 2. Intracranial arteries appear patent without significant stenosis nor occlusion. Also no aneurysm s. 3. No acute intracranial findings. No ring enhancing lesions in the brain RADIATION DOSE DELIVERED: 2,271.87mGy.cm Total DLP DATA REPOSITORY: All CT scans at this facility are submitted to the National Radiology Data Registry (NRDR) Dose Index Registry (DIR) with the [employer] (ACR). RADIATION OPTIMIZATION: All CT scans at this facility use at least one of these dose optimization te chniques: automated exposure control; mA and/or kV adjustment per patient size (includes targeted exa ms where dose is matched to clinical indication); or iterative reconstruction.
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
[2022-04-16] MEDS: Normal Saline 1,000 ML 1000 ML IV (05:24)
[2022-04-16] MEDS: diphenhydrAMINE 50 MG/ML VIAL 25 MG IVP (05:27)
[2022-04-16] MEDS: Ketorolac 15 MG/ML VIAL IVP (05:29)
[2022-04-16] MEDS: methylPREDNISolone SUCC 125 MG VIAL IVP (05:30)
[2022-04-16] MEDS: Prochlorperazine 10 MG/2 ML VIAL IVP (05:33)
[2022-04-16] MEDS: ACETAMINOPHEN 1,000 MG/100 ML BTL 400 MG IVPB (05:37)
[2022-04-16 05:51] LABS: Abs Immature Grans 0.03 10^3/uL (0.0-0.06); Absolute Basophil Count 0.06 10^3/uL (0.0-0.2); Absolute Eosinophil Count 0.17 10^3/uL (0.0-0.7); Absolute Lymphocyte Count 2.99 10^3/uL (1.2-3.4); Absolute Monocyte Count 0.69 10^3/uL (0.1-0.8); Absolute Neutrophil Count 5.64 10^3/uL (1.2-6.7); Basophils % 0.6; Eosinophils % 1.8; HGB 14.8 g/dL (11.2-15.7); Immature Grans % 0.3; Lymphocytes % 31.2; MCH 29.8 pg (27.0-33.0); MCHC 33.6 % (32.0-36.0); MCV 89 fL (80-95); MPV 11.2 fL (8.0-11.0); Monocytes % 7.2; Neutrophils % 58.9; Platelet Count 240 10^3/uL (130-400); RBC 4.97 10^6/uL (3.93-5.22); RDW-SD 42.3 fL; WBC 9.58 10^3/uL (4.4-10.8)
[2022-04-16 06:04] LABS: Anion Gap 7.1 mmol/L (3-11); BUN 10 mg/dL (7-18); CO2 29.9 mmol/L (21.0-32.0); CREATININE 0.8 mg/dL (0.55-1.02); Calcium 8.8 mg/dL (8.5-10.1); Chloride 101 mmol/L (98-107); Estimated GFR 86.96 (mL/min/1.73m2); Glucose 150 mg/dL (74-106); Potassium 3.5 mmol/L (3.5-5.1); Sodium 138 mmol/L (136-145)
[2022-04-16] MEDS: Omnipaque 350 MG/ML 100 ML BTL IJ (06:08)
[2022-04-16] MEDS: Normal Saline Flush 10 ML SYR IVP (06:10)
--- NOTE | 2022-04-16 06:58 | DI.VRAD_ITS ---
PROCEDURE INFORMATION: Exam: CTA Head With Contrast, Arteriography Exam date and time: 04/16/2022 6:09 AM Age: 57 years old Clinical indication: Stroke-like symptoms; Headache; Additional info: Headache for days, pressure behind eyes, post covid, fhx anyurism TECHNIQUE: Imaging protocol: Computed tomographic angiography of the head with contrast. Exam focused on the arteries. 3D rendering (Not supervised by radiologist): MIP and/or 3D reconstructed images were created by the technologist. Contrast material: OMNIPAQUE 350; Contrast volume: 85 ml; Contrast route: INTRAVENOUS (IV); COMPARISON: CR XR SOFT TISSUE NECK 10/13/2021 6:41 AM FINDINGS: ANTERIOR CIRCULATION: Right internal carotid artery: Unremarkable. Intracranial segment is patent with no significant stenosis. No aneurysm. Right middle cerebral artery: Unremarkable. No occlusion or significant stenosis. No aneurysm. Right anterior cerebral artery: Unremarkable. No occlusion or significant stenosis. No aneurysm. Left internal carotid artery: Unremarkable. Intracranial segment is patent with no significant stenosis. No aneurysm. Left middle cerebral artery: Unremarkable. No occlusion or significant stenosis. No aneurysm. Left anterior cerebral artery: Unremarkable. No occlusion or significant stenosis. No aneurysm. POSTERIOR CIRCULATION: Right vertebral artery: Unremarkable. No occlusion or significant stenosis. No aneurysm. Left vertebral artery: Unremarkable. No occlusion or significant stenosis. No aneurysm. Basilar artery: Unremarkable. No occlusion or significant stenosis. No aneurysm. Right posterior cerebral artery: Unremarkable. No occlusion or significant stenosis. No aneurysm. Left posterior cerebral artery: Unremarkable. No occlusion or significant stenosis. No aneurysm. Brain: No definite mass, mass effect, or midline shift. Cerebral ventricles: No ventriculomegaly. Bones/joints: Unremarkable. No acute fracture. Soft tissues: Unremarkable. IMPRESSION: No large vessel stenosis or occlusion. PROCEDURE INFORMATION: Exam: CTA Neck With Contrast Exam date and time: 04/16/2022 6:09 AM Age: 57 years old Clinical indication: Stroke-like symptoms; Headache; Additional info: Headache for days, pressure behind eyes, post covid, fhx anyurism TECHNIQUE: Imaging protocol: Computed tomographic angiography of the neck with contrast. 3D rendering (Not supervised by radiologist): MIP and/or 3D reconstructed images were created by the technologist. Radiation optimization: All CT scans at this facility use at least one of these dose optimization techniques: automated exposure control; mA and/or kV adjustment per patient size (includes targeted exams where dose is matched to clinical indication); or iterative reconstruction. Contrast material: OMNIPAQUE 350; Contrast volume: 85 ml; Contrast route: INTRAVENOUS (IV); COMPARISON: CR XR SOFT TISSUE NECK 10/13/2021 6:41 AM FINDINGS: Right common carotid artery: No stenosis. No dissection or occlusion. Right internal carotid artery: No stenosis of the extracranial segment. No dissection or occlusion. Right external carotid artery: No occlusion or stenosis of the origin. Left common carotid artery: No stenosis. No dissection or occlusion. Left internal carotid artery: No stenosis of the extracranial segment. No dissection or occlusion. Left external carotid artery: No occlusion or stenosis of the origin. Right vertebral artery: No stenosis. No dissection or occlusion. Left vertebral artery: No stenosis. No dissection or occlusion. Soft tissues: Normal. No significant soft tissue swelling. Bones/joints: No acute fracture. IMPRESSION: No stenosis or occlusion. REFERENCES: NASCET CRITERIA. The degree of stenosis in the cervical segment of the internal carotid artery is based on NASCET criteria. Normal is no stenosis. Mild is less than 50% stenosis. Moderate is 50-69% stenosis. Severe is 70% to 99% stenosis. Total occlusion is no detectable patent lumen. Dictated and Authenticated by: Chaparrita Rasmussen MD. Ordering:VARUN Dhaliwal MD
[2022-04-16 07:05] VITALS: BP 128/90; PULSE 72; RESP 17; O2SAT 99
[2022-04-16 07:57] VITALS: BP 133/64; PULSE 50; TEMP 36.8; O2SAT 95
== END 2022-04-16 08:08 | disposition home or self-care (01) ==
PROVIDERS: Emergency Provider Student in an Organized Health Care Education/Training Program; PCP Nurse Practitioner Family
DX: R51.9 Headache, unspecified (principal); J45.909 Unspecified asthma, uncomplicated; E11.9 Type 2 diabetes mellitus without complications
CPT/HCPCS: 70496; 70498; 80048; 96361; 96374; 96375; 99285; 85025; 99284; J0131; J0780; J1200; J1885; J2930; J3490

== ENCOUNTER 2022-06-28 08:24 | Emergency (ER) | payer MEDICAID, SELFPAY ==
[2022-06-28 08:46] VITALS: BP 135/93; PULSE 70; RESP 14; TEMP 36.9; O2SAT 99
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
[2022-06-28] MEDS: Dexamethasone 4 MG TAB 10 MG PO (09:48)
[2022-06-28] MEDS: diphenhydrAMINE 25 MG CAP PO (09:48)
[2022-06-28] MEDS: Famotidine 20 MG/2 ML VIAL IVP (09:49)
[2022-06-28] MEDS: Famotidine 20 MG TAB 40 MG PO (09:49)
== END 2022-06-28 10:26 | disposition home or self-care (01) ==
PROVIDERS: Emergency Provider Emergency Medicine; PCP Nurse Practitioner Family
DX: K13.79 Other lesions of oral mucosa (principal); R09.89 Other specified symptoms and signs involving the circulatory and respiratory systems
CPT/HCPCS: 87880; 96374; 99284; 87081; 99283; J8540

== ENCOUNTER 2022-10-14 14:44 | Outpatient (REF) | payer MEDICAID, SELFPAY ==
[2022-10-14 15:16] LABS: HCT 42.4 % (36.0-46.0); HGB 14.6 g/dL (11.2-15.7); MCH 30.2 pg (27.0-33.0); MCHC 34.4 % (32.0-36.0); MCV 88 fL (80-95); MPV 11.6 fL (8.0-11.0); Platelet Count 230 10^3/uL (130-400); RBC 4.83 10^6/uL (3.93-5.22); RDW 12.4 % (11.7-14.6); RDW-SD 39.9 fL; WBC 9.15 10^3/uL (4.4-10.8)
[2022-10-14 16:01] LABS: ALT 39 U/L (14-59); AST 22 U/L (15-37); Albumin 3.9 g/dL (3.4-5.0); Alkaline Phosphatase 98 U/L (46-116); Anion Gap 10.6 mmol/L (3-11); BUN 12 mg/dL (7-18); Bilirubin, Total 0.5 mg/dL (0.2-1.0); CO2 27.4 mmol/L (21.0-32.0); CREATININE 0.9 mg/dL (0.55-1.02); Calcium 8.9 mg/dL (8.5-10.1); Chloride 105 mmol/L (98-107); Glucose 179 mg/dL (74-106); Sodium 143 mmol/L (136-145); Total Protein 7.4 g/dL (6.4-8.2)
[2022-10-14 16:20] LABS: Iron 75 ug/dL (50-170); Total Iron Binding Capacity 342 ug/dL (250-450); Transferrin Sat 22 % (15-50)
[2022-10-14 16:44] LABS: Vitamin D 25 Total 19.1 ng/mL (30-100)
== END 2022-10-14 14:45 | disposition home or self-care (01) ==
LOC: NCHCN 14:44
PROVIDERS: PCP Nurse Practitioner Family; Visit Provider Nurse Practitioner Family
DX: N64.4 Mastodynia (principal); M79.605 Pain in left leg; G47.33 Obstructive sleep apnea (adult) (pediatric); I10 Essential (primary) hypertension
CPT/HCPCS: 80053; 82306; 85027; 83540; 83550; 84443

== ENCOUNTER 2022-10-31 01:55 | Outpatient (CLI) | payer MEDICAID, SELFPAY ==
--- NOTE | 2022-10-31 13:12 | DI.MAMMO_ITS ---
Exam(s) US BREAST RT LIMITED MG MAMMO DIAGNOSTIC BI EXAM: MAMMO DIAGNOSTIC BI CLINICAL HISTORY: BREAST TENDERNESS N64.4. COMPARISON: No exams were available for comparison TECHNIQUE: Craniocaudal and mediolateral oblique Full Field Digital Mammography views of the breast with Computer Aided Diagnosis followed by Tomosynthesis and breast ultrasound. FINDINGS: Mammography/Tomosynthesis: Masses/Architectural Distortion: None seen. Microcalcifications: No suspicious pleomorphic-type are seen. Skin Thickening/Nipple Retraction: None. Right breast US: Echotexture: Normal appearance of the glandular tissue. Shadowing: No suspicious foci. Cyst: None. Solid lesions: None seen. Ductal dilation: None. IMPRESSION: 1. No evidence of malignancy is noted. 2. Unless there is more urgent need, follow-up screening mammography is recommended, as per [place] [employer] guidelines. BI-RADS Category 1 - Negative Breast Density - Category A - Almost entirely fatty A negative radiographic report should not delay biopsy if a dominant or clinically suspicious mass is present. Up to ten percent of cancers are not identified on mammography. A negative report may reinforce clinical impression. Adenosis and dense breasts may obscure an underlying neoplasm. False positive reports average 6 to 10%. Patient will receive a letter notifying them of these results.
== END 2022-10-31 02:15 ==
LOC: DI 01:55
PROVIDERS: PCP Nurse Practitioner Family; Visit Provider Nurse Practitioner Family
DX: N64.4 Mastodynia (principal)
CPT/HCPCS: 76642; 77062; 77066; G0279

== ENCOUNTER 2023-04-19 19:06 | Outpatient (REF) | payer MEDICAID, SELFPAY ==
[2023-04-19 19:31] LABS: Microalb ug/mg Crea 12.9 ug/mg Cr
== END 2023-04-19 19:07 | disposition home or self-care (01) ==
LOC: NCHCN 19:06
PROVIDERS: PCP Nurse Practitioner Family; Visit Provider Physician Assistant
DX: E11.9 Type 2 diabetes mellitus without complications (principal)
CPT/HCPCS: 82043; 82570